=== PATIENT | female | born 2000 | race Caucasian/White ===

== ENCOUNTER 2019-10-21 17:12 | Emergency (ER) | payer OTHER, BC, SELFPAY ==
[2019-10-21 17:14] VITALS: BP 139/101; PULSE 94; RESP 16; TEMP 36.6; O2SAT 100; BMI 23.1
[2019-10-21] MEDS: morphine 8 MG/ML Syringe IV (17:59)
[2019-10-21] MEDS: Ondansetron ODT 4 MG Tablet PO (18:01)
--- NOTE | 2019-10-21 18:34 | ED.DCSUM_ITS ---
- ER Visit Summary Date of Service: 10/21/19 Chief Complaint: Earache History of Present Illness: The patient is a 18 F with no primary care physician. She went to urgent care 2 days ago and had her ear flushed. She was placed on Cortisporin otic and Augmentin. She reports that she is not getting any better. She describes a sharp, stabbing pain in her ear that is 10 out of 10 at worst and 7-10 currently. Is worsened by talking or eating solids. She taken ibuprofen with minimal relief. She complains of subjective fever and chills. She has a little bit of sore throat. Physical Examination: Vitals: Stable. Afebrile. General: Well-nourished and well-developed. Head: Normocephalic atraumatic. HEENT: Right external auditory canal and TM are normal. She has pain with movement of the left tragus or pinna. There is exudate present in the canal and it is swollen. I am unable to visualize her TM. No evidence of mastoiditis. Neck: Supple, no lymphadenopathy. No JVD. Nontender. Cardiovascular: Regular rate and rhythm. No murmurs. Respiratory: No respiratory distress. Clear to auscultation bilaterally. Abdominal: Soft, nontender, nondistended, normal bowel sounds. No guarding, rebound, or peritoneal signs. Back: Nontender. Extremities: Nontender, no edema. Skin: Normal color, no rash. Neurologic: Alert and oriented ?3. Cranial nerves II through XII are intact. Normal strength and sensation. Psych: Normal affect. Emergency Department Course and Treatment: Patient was given a shot of morphine IM. She then had a wick placed in her ear. Treatment Plan: Patient will be switched from hydrocortisone otic to Ciprodex. She is given [place] for pain and instructed continue take the Augmentin as I cannot visualize her TM. Follow-up with Dr. Leija in 1 week for another exam. Return to the emergency department for any worsening symptoms. Disposition: To home in improved and stable condition. Impression: 1. Otitis externa on left. This note was generated with [employer] software. It may contain incorrect words, spelling, and punctuation that were not noted in review of the chart prior to signing ED Disposition - Plan for ED Patient: Disposition: Home or Assisted Living Instructions: EXTERNAL EAR INFECTION (Adult) Prescriptions: Ciprofloxacin HCl/Dexameth [Ciprodex Otic Suspension] 4 drp OTIC (EAR) BID #1 bottle Prescription Printed Hydrocodone Bitart/Apap 5-325 [[place] 5MG-325MG] 1 tab PO Q4H PRN PRN 2 Days #10 tab PRN Reason: Pain Prescription Printed Referrals: Geraldo Leija MD [STAFF PHYSICIAN] - 1 Week
== END 2019-10-21 18:49 | disposition home or self-care (01) ==
LOC: ED 18:13
PROVIDERS: Emergency Provider Emergency Medicine; PCP Pediatrics
DX: H60.92 Unspecified otitis externa, left ear (principal); Z72.0 Tobacco use
CPT/HCPCS: 96374; 99283; A4216; J2405

== ENCOUNTER 2021-04-24 11:07 | Emergency (ER) | payer BC, SELFPAY ==
[2021-04-24 11:07] VITALS: BP 125/75; PULSE 79; RESP 16; TEMP 36.6; O2SAT 98; BMI 23.3
--- NOTE | 2021-04-24 11:40 | EDS_ITS ---
HPI History of Present Illness Chief Complaint: Dizziness Informant: patient Narrative Narrative: Presenting with vertigo symptoms starting yesterday evening. Today worsen with room spinning. States symptoms worse with fast movements. No ear pain no sinus congestion. No history of similar. 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 No fevers. No vomiting. No urinary symptoms. Prior similar symptoms: No PFSH PFSH Home Medications metoclopramide HCl [Reglan] 10 mg PO Q6H PRN #10 tab 04/24/21 [Rx Last Taken Unknown] Allergy/AdvReac Type Severity Reaction Status Date / Time tussin AdvReac Rash Uncoded 03/24/21 12:07 Social History Smoking Status: Current every day smoker tobacco type: cigarettes ROS ROS ED Constitutional Constitutional ED: Denies chills, fever(s) or sweats Eyes Eyes: Denies change in vision ENT ENT ED: Denies dysphagia or sore throat Cardiovascular Cardiovascular: Denies chest pain, leg edema, palpitations or racing heartbeat Respiratory/Chest Respiratory/Chest: Denies cough, dyspnea or dyspnea on exertion Gastrointestinal Gastrointestinal: Denies abdominal pain, diarrhea, nausea or vomiting Genitourinary Genitourinary ED: Denies dysuria, hematuria or urinary frequency Musculoskeletal Musculoskeletal: Denies back pain, extremity pain or neck pain Integumentary Denies rash or wounds Neurologic Neurologic: Reports other Details: Dizzy spinning. ; Denies headache(s), paresthesias or weakness EXAM Physical Exam Const Vital Signs: 04/24/21 11:07 04/24/21 11:53 04/24/21 13:30 Temperature 98 F Temperature Source Temporal Pulse Rate 79 77 Respiratory Rate 16 16 Respiratory Effort Normal Non-Labored Respiratory Pattern Normal Blood Pressure 125/75 H Blood Pressure Mean 91 Pulse Ox 98 96 Oxygen Delivery Method Room Air Room Air Positive well nourished and well developed General Appearance ED: well developed and NAD HEENT Reports TM's clear and moist mucous membranes normocephalic and atraumatic Tympanic Membrane ED: Yes TM's clear Eyes PERRL, EOMs intact bilaterally and conjunctivae normal Eyes Narrative: No nystagmus. Symptoms worsening with extreme eye movement to the right. General Eye ED: Yes normal appearance of both eyes Neck no lymphadenopathy and supple General: Negative for tenderness Chest Wall Chest: Negative for tenderness Resp normal respiratory effort and normal air movement Effort and Inspection: symmetric chest movement; Negative for respiratory distress Cardio regular rate, regular rhythm and no murmurs Peripheral Pulses: pulses 2+ throughout GI normal to inspection, nondistended, normoactive bowel sounds and non-tender Palpation: Negative for guarding or rebound tenderness present Back/Spine no CVA tenderness and no thoracic nor lumbar tenderness Extremity normal to inspection General Extremety ED: Negative for edema or tenderness General Extremity: Negative for edema Neuro oriented x3 and no sensory deficits noted Sensorium / Orientation: awake and alert Skin no rashes or lesions noted and no wounds MDM MDM MDM Narrative Medical decision making narrative: Patient presenting with vertigo symptoms for the past 2 days. Symptoms worse with movement. She had no focal deficits. Tried meclizine in the ED along with Benson maneuver, she states symptoms did not improve. IV was established given fluids IV Reglan laboratory studies normal. CT head was negative. On reevaluation's her symptoms improved, she is able to move her head with no return of symptoms. She will be discharged prescription for Reglan to use as needed and follow-up with her PCP. Discussed the recurrent symptoms will need further work-up as an outpatient. All questions were answered. Lab Data Attestation: I reviewed the patient's lab results. Labs: Laboratory Results - last 24 hr 04/24/21 04/24/21 04/24/21 13:30 13:30 13:30 WBC 7.6 RBC 4.95 Hgb 14.1 Hct 42.1 MCV 85.1 MCH 28.5 MCHC 33.5 RDW Std Deviation 35.5 RDW Coeff of [place] 11.7 Plt Count 338 MPV 9.1 Immature Gran % (Auto) 0.300 Neut % (Auto) 53.3 Lymph % (Auto) 22.5 Towns % (Auto) 5.4 Eos % (Auto) 18.1 H Baso % (Auto) 0.4 Absolute Neuts (auto) 4.0 Absolute Lymphs (auto) 1.70 Nucleated RBC % 0 Sodium 139 Potassium 4.0 Chloride 107 Carbon Dioxide 28.0 Anion Gap 4 L BUN 7 Creatinine 0.76 Estim Creat Clear Calc 104.48 Est GFR (MDRD) Af Amer 122 Est GFR (MDRD) Non-Af 101 BUN/Creatinine Ratio 9.2 L Glucose 87 Calcium 9.7 Serum , Qual NEGATIVE Radiography Diagnostic Testing: Radiology Impression Brain CT 04/24/21 13:16 IMPRESSION: Negative head/brain CT without intravenous contrast. Electronically Signed: Rafa Ivory MD at 14:39 EDT , Service support , Discharge Plan Triage Chief Complaint: Dizziness ED Provider: Charlie Johnson Dx/Rx/DC Orders Clinical Impression: Vertigo Instructions: Dizziness Vertigo and Balance ... Prescriptions: New metoclopramide HCl [Reglan] 10 mg tablet 10 mg PO Q6H PRN (Reason: dizziness or vertigo) Qty: 10 RF: 0 Primary Care Provider: Care Physician,No Primary Referrals: Care Physician,No Primary [Primary Care Provider] - Reno Rose MD [STAFF PHYSICIAN] - 1 Week Disposition Disposition: Home, Self Care
[2021-04-24] MEDS: Meclizine HCl 25 MG Tablet PO (11:52)
--- NOTE | 2021-04-24 13:16 | CT_ITS ---
EXAM: CT HEAD WITHOUT INTRAVENOUS CONTRAST CLINICAL INDICATION: vertigo TECHNIQUE: Multiple axial images were obtained of the head without intravenous contrast. This CT exam was performed using one or more of the following dose reduction techniques: automated exposure control, adjustment of the mA and/or kV according to patient size, and/or use of iterative reconstruction technique. This report was created using [employer] report generation technology. COMPARISON: None. FINDINGS: BRAIN AND EXTRA-AXIAL SPACES: Unremarkable. No intra- or extra-axial hemorrhage. No evidence of acute infarct. No intracranial mass or mass effect. There is preservation of the spann/white matter interface. Posterior fossa structures are unremarkable. Ventricles are appropriate for age. No hydrocephalus. Basal cisterns are patent. BONES/JOINTS: Unremarkable. No discrete lytic or blastic abnormalities. SINUSES: Unremarkable as visualized. Clear. MASTOID AIR CELLS: Unremarkable. Clear. ORBITS: Visualized globes, extraocular muscles, optic nerves and retrobulbar fat appear unremarkable. CT/Brain/Head without Contrast IMPRESSION: Negative head/brain CT without intravenous contrast. Electronically Signed: Rafa Ivory MD at 14:39 EDT , Service support ,
[2021-04-24 13:30] VITALS: PULSE 77; RESP 16; O2SAT 96
[2021-04-24] MEDS: Metoclopramide 10 MG/2 ML Vial 5 MG IV (13:31)
[2021-04-24 13:41] LABS: Basophil# 0.03 X10^3/uL; Basophil% 0.4 % (0-1); Eosinophil# 1.37 X10^3/uL; Eosinophils% 18.1 % (0-5); Hematocrit 42.1 % (37-47); Hemoglobin 14.1 g/dL (12.0-15.0); Lymphocyte % 22.5 % (19-41); Mean Corp Hgb Conc 33.5 g/dL (32-36); Mean Corpuscular Hgb 28.5 pg (27.0-32.0); Mean Corpuscular Volume 85.1 fL (81-99); Mean Platelet Vol. 9.1 fl (6.2-12.0); Monocyte# 0.41 X10^3/uL; Monocyte% 5.4 % (0-10); NRBC Flagged by Analyzer 0 % (0-5); Neutrophil # 4.04 X10^3/uL (2.7-7.7); Neutrophil % 53.3 % (47-70); Platelet Count 338 K/mm3 (150-450); RBC Distribution Width CV 11.7 % (11.6-14.6); RBC Distribution Width SD 35.5 fl (35.1-43.9); Red Blood Count 4.95 M/mm3 (4.2-5.4); White Blood Count 7.6 K/mm3 (4.4-11.0)
[2021-04-24 13:50] LABS: Internal QC Validated? YES +Cl - CLEAR BKGD; Pregnancy, Serum, hCG Quali. NEGATIVE Negative
[2021-04-24 13:55] LABS: Anion Gap 4 (5-15); BUN 7 mg/dL (7-18); BUN/Creat Ratio 9.2 RATIO (10-20); Calcium,Total 9.7 mg/dL (8.5-10.1); Chloride 107 mmol/L (98-107); Creatinine, Serum 0.76 mg/dL (0.55-1.02); EST Glomerular Filtration Rate 101 mL/min (>60); Est Glom Filt Rate - Afr Amer 122 mL/min (>60); Estimated Creatinine Clearance 104.48 ml/min; Glucose 87 mg/dL (74-106); Sodium Level 139 mmol/L (136-145)
[2021-04-24 16:29] VITALS: PULSE 86; RESP 16; O2SAT 97
== END 2021-04-24 16:30 | disposition home or self-care (01) ==
PROVIDERS: Emergency Provider Emergency Medicine
DX: R42 Dizziness and giddiness (principal); F17.210 Nicotine dependence, cigarettes, uncomplicated
CPT/HCPCS: 70450; 80048; 84703; 85025; 96361; 96374; 99283; J7040

== ENCOUNTER 2021-06-05 12:20 | Emergency (ER) | payer BC, SELFPAY ==
[2021-06-05 12:22] VITALS: BP 113/91; PULSE 105; RESP 18; TEMP 37.1; O2SAT 99; BMI 22.4
--- NOTE | 2021-06-05 12:47 | EDS_ITS ---
HPI History of Present Illness Chief Complaint: Headache Informant: patient Narrative Narrative: Patient's been having problems with headaches for about 3 or 4 months. These are almost always unilateral right-sided headaches that start in the front and then moved toward the back of her head and the top of her neck. She does get some photophobia and sonophobia with them. She has had nausea but has not vomited. Nothing specifically brings these on consistently but sometimes loud noises well. She has had no recent head trauma. She was seen here earlier in April. She had a CT. She has an appointment with her physician for follow-up this Saturday. She is also noted that she sometimes gets tingling of her fingers and toes. This will move up her arms to somewhere between elbows and shoulders or knees and hips. This will occur bilaterally.. Prior similar symptoms: Yes PFSH PFSH Medical History (Updated 06/05/21 @ 14:[address] Nicko Long MD) Migraines Medical History no medical history no medical history Home Medications metoclopramide HCl [Reglan] 10 mg PO Q6H PRN #10 tab 04/24/21 [Rx Last Taken Unknown] Allergy/AdvReac Type Severity Reaction Status Date / Time tussin AdvReac Rash Uncoded 06/05/21 12:25 Social History Smoking Status: Current every day smoker tobacco type: e-cigarettes ROS ROS ED Constitutional Constitutional ED: Denies chills, fever(s) or subjective Eyes Eyes: Reports other Details: Positive photophobia when she has a headache. ; Denies blurry vision, change in vision or diplopia ENT ENT ED: Denies ear pain, rhinorrhea or sore throat Cardiovascular Cardiovascular: Denies chest pain or palpitations Respiratory/Chest Respiratory/Chest: Denies cough or dyspnea Gastrointestinal Gastrointestinal: Reports nausea; Denies abdominal pain, diarrhea or vomiting Genitourinary Genitourinary ED: Denies dysuria Musculoskeletal Musculoskeletal: Denies arthralgias, back pain, myalgias or neck pain Integumentary Denies Abrasions or rash Neurologic Neurologic: Reports headache(s) and paresthesias; Denies weakness Psychiatric Psychiatric: Denies anxiety or depression Endocrine Endocrinology: Denies polydipsia or polyuria Hematologic/Lymphatic Hematologic/Lymphatic: Denies easy bleeding or easy bruising Allergic/Immunologic Allergic/Immunologic ED: Denies urticaria EXAM Physical Exam Const Vital Signs: 06/05/21 12:22 Temperature 98.8 F Temperature Source Temporal Pulse Rate 105 H Respiratory Rate 18 Blood Pressure 113/91 H Blood Pressure Mean 98 Pulse Ox 99 Oxygen Delivery Method Room Air Patient is sitting in a well lit room. She does feel better when I turn off the lights. She is nontoxic. She carries on a very normal conversation. Positive well nourished and well developed General Appearance ED: well developed and NAD HEENT Reports normocephalic, TM's clear and moist mucous membranes atraumatic; Negative for temporal artery tenderness or vesicular rash Face and Sinus: Negative for sinus tenderness Tympanic Membrane ED: Yes TM's clear Eyes PERRL and EOMs intact bilaterally Neck no lymphadenopathy, supple and no meningeal signs Resp normal respiratory effort and clear to auscultation bilaterally Cardio regular rate and regular rhythm GI non-tender and non-distended Palpation: soft Back/Spine no CVA tenderness Neuro oriented x3 and no sensory deficits noted Neuro Narrative: Patient has normal strength and sensation. She gets up off the chair rotates sits down on the bed without any difficulty or discoordination. Sensorium / Orientation: awake and alert Motor Exam: strength 5/5 throughout Psych mental status grossly normal Skin Lesions: no lesions Rashes: no rashes MDM MDM MDM Narrative Medical decision making narrative: Patient's blood work showed no marked abn ormalities. Sodium was minimally low. Glucose potassium chloride calcium are all normal. I reviewed her CT scan that was done last month. I do not think that needs to be repeated. Her symptoms are essentially the same and there is no neurologic finding on exam. She is treated with Benadryl, Compazine IV fluids. She is resting and feels much better. I explained that she should cautiously watch out for any auras. She states she does not think she has them before her headache starts but no one has talked to her about that before. If she can sort out an aura, she can take Imitrex at the onset that will hopefully abort her headaches. She will follow up with her private physician. We also discussed seeing neurology and consideration of MRI as a possibility as an outpatient. We also discussed multiple sclerosis although I do not think this is likely in her case. Lab Data Attestation: I reviewed the patient's lab results. Labs: Laboratory Results - last 24 hr 06/05/21 13:10 Sodium 134 L Potassium 4.3 Chloride 105 Carbon Dioxide 21.0 Anion Gap 8 BUN 17 Creatinine 0.95 Estim Creat Clear Calc 83.58 Est GFR (MDRD) Af Amer 95 Est GFR (MDRD) Non-Af 78 BUN/Creatinine Ratio 18.0 Glucose 99 Calcium 9.4 Discharge Plan Triage Chief Complaint: Headache ED Provider: Nicko Long Dx/Rx/DC Orders Clinical Impression: Migraine Instructions: ED, Migraine (Classical) Prescriptions: No Action metoclopramide HCl [Reglan] 10 mg tablet 10 mg PO Q6H PRN (Reason: dizziness or vertigo) Qty: 10 RF: 0 Primary Care Provider: Care Physician,No Primary Referrals: Care Physician,No Primary [Primary Care Provider] - Activity Restrictions/Additional Instructions: Follow-up again with your primary physician as soon as possible. Disposition Disposition: Home, Self Care
[2021-06-05] MEDS: proCHLORPERazine 10 MG/2 ML Vial IV (13:08)
[2021-06-05] MEDS: DiphenhydrAMINE 50 MG/ML Syringe IV (13:08)
[2021-06-05] MEDS: 0.9% Normal Saline 1,000 ML 999 ML IV (13:08)
[2021-06-05 13:41] LABS: Anion Gap 8 (5-15); BUN 17 mg/dL (7-18); Calcium,Total 9.4 mg/dL (8.5-10.1); Chloride 105 mmol/L (98-107); Creatinine, Serum 0.95 mg/dL (0.55-1.02); EST Glomerular Filtration Rate 78 mL/min (>60); Est Glom Filt Rate - Afr Amer 95 mL/min (>60); Estimated Creatinine Clearance 83.58 ml/min; Glucose 99 mg/dL (74-106); Potassium 4.3 mmol/L (3.5-5.1); Sodium Level 134 mmol/L (136-145)
[2021-06-05 14:34] VITALS: BP 112/76; PULSE 76; RESP 16; O2SAT 97
== END 2021-06-05 14:36 | disposition home or self-care (01) ==
PROVIDERS: Emergency Provider Emergency Medicine
DX: G43.909 Migraine, unspecified, not intractable, without status migrainosus (principal); F17.290 Nicotine dependence, other tobacco product, uncomplicated
CPT/HCPCS: 80048; 96361; 96374; 96375; 99284; J7030; A4216

== ENCOUNTER 2022-04-10 10:51 | Emergency (ER) | payer OTHER, SELFPAY ==
[2022-04-10 10:52] VITALS: BP 140/97; PULSE 108; RESP 18; TEMP 37.1; O2SAT 100; BMI 19.8
--- NOTE | 2022-04-10 11:15 | EDS_ITS ---
HPI History of Present Illness Chief Complaint: Nausea/Vomiting Informant: patient Onset/Context/Timing Onset: Days (3 days) Context: Gradual Onset Current Severity: Mild Maximum Severity: Moderate Narrative Narrative: Patient presents with 3 days of nausea and vomiting. She describes some abdominal cramping and nauseous feeling. She called her PCP this morning who felt she needed to be come in for IV fluids. She denies urinary symptoms. No diarrhea. No fever or chills. Last menstrual cycle started on March 23. [facility] Medical History Migraines Home Medications ondansetron 4 mg disintegrating tablet 4 mg PO Q8H PRN nausea and vomiting #10 tabs 04/10/22 [Rx Last Taken Unknown] Allergy/AdvReac Type Severity Reaction Status Date / Time No Known Allergies Allergy Verified 04/10/22 10:54 Social History Smoking Status: Current every day smoker tobacco type: e-cigarettes ROS ROS ED Constitutional Constitutional ED: Denies chills or fever(s) Eyes Eyes: Denies change in vision or discharge from eye(s) ENT ENT ED: Denies discharge from eye(s), rhinorrhea or sore throat Cardiovascular Cardiovascular: Denies chest pain or palpitations Respiratory/Chest Respiratory/Chest: Denies cough or dyspnea Gastrointestinal Gastrointestinal: Reports nausea and vomiting; Denies abdominal pain or diarrhea Genitourinary Genitourinary ED: Denies difficulty urinating or dysuria Musculoskeletal Musculoskeletal: Denies back pain or extremity pain Integumentary Denies Abrasions or rash Neurologic Neurologic: Denies headache(s) or weakness Psychiatric Psychiatric: Denies anxiety or depression Allergic/Immunologic Allergic/Immunologic ED: Denies lip swelling or urticaria EXAM Physical Exam Const Vital Signs: 04/10/22 10:52 Temperature 98.7 F Temperature Source Temporal Pulse Rate 108 H Respiratory Rate 18 Blood Pressure 140/97 H Blood Pressure Mean 111 Pulse Ox 100 Oxygen Delivery Method Room Air Positive well nourished and well developed General Appearance ED: well developed HEENT Reports normocephalic and head/scalp atraumatic Eyes PERRL and EOMs intact bilaterally Neck supple Chest Wall inspection of chest normal and palpation of chest normal Resp normal respiratory effort and clear to auscultation bilaterally Cardio regular rate and regular rhythm GI non-tender Auscultation: hypoactive bowel sounds Palpation: soft Extremity normal to inspection Neuro oriented x3 and no sensory deficits noted Sensorium / Orientation: alert Motor Exam: strength 5/5 throughout Psych mental status grossly normal Skin no rashes or lesions noted MDM MDM MDM Narrative Medical decision making narrative: Patient given a liter IV fluid along with a dose of Zofran. Lab work obtained along with urinalysis. Lab Data Attestation: I reviewed the patient's lab results. Labs: Laboratory Results - last 24 hr 04/10/22 04/10/22 04/10/22 11:31 11:31 11:31 WBC 5.0 RBC 4.62 Hgb 13.3 Hct 39.7 MCV 85.9 MCH 28.8 MCHC 33.5 RDW Std Deviation 37.8 RDW Coeff of [place] 12.1 Plt Count 273 MPV 9.4 Immature Gran % (Auto) 0.400 Neut % (Auto) 67.1 Lymph % (Auto) 24.9 [place] % (Auto) 5.8 Eos % (Auto) 1.6 Baso % (Auto) 0.2 Absolute Neuts (auto) 3.4 Absolute Lymphs (auto) 1.25 Nucleated RBC % 0 Sodium 139 Potassium 4.1 Chloride 107 Carbon Dioxide 26.0 Anion Gap 6 BUN 10 Creatinine 0.83 Estim Creat Clear Calc 89.86 Est GFR (MDRD) Af Amer 109 Est GFR (MDRD) Non-Af 90 BUN/Creatinine Ratio 12.0 Glucose 90 Calcium 9.4 Serum , Qual NEGATIVE Urine Color Urine Clarity Urine pH Ur Specific [place] Urine Protein Urine Glucose (UA) Urine Ketones Urine Occult Blood Urine Nitrite Urine Bilirubin Urine Urobilinogen Ur Leukocyte Esterase Urine RBC Urine WBC Ur Squamous Epith Cells Urine Bacteria Urine Mucus 04/10/22 11:35 WBC RBC Hgb Hct MCV MCH MCHC RDW Std Deviation RDW Coeff of [place] Plt Count MPV Immature Gran % (Auto) Neut % (Auto) Lymph % (Auto) [place] % (Auto) Eos % (Auto) Baso % (Auto) Absolute Neuts (auto) Absolute Lymphs (auto) Nucleated RBC % Sodium Potassium Chloride Carbon Dioxide Anion Gap BUN Creatinine Estim Creat Clear Calc Est GFR (MDRD) Af Amer Est GFR (MDRD) Non-Af BUN/Creatinine Ratio Glucose Calcium Serum , Qual Urine Color Yellow Urine Clarity Sl. Cloudy Urine pH 7.0 Ur Specific [place] 1.010 Urine Protein Negative Urine Glucose (UA) Normal Urine Ketones Negative Urine Occult Blood Negative Urine Nitrite Negative Urine Bilirubin Negative Urine Urobilinogen Normal Ur Leukocyte Esterase Negative Urine RBC 0 SEEN Urine WBC 0 SEEN Ur Squamous Epith Cells 0-5 SEEN Urine Bacteria 0 SEEN Urine Mucus 0 SEEN Treatment and Re-Evaluation Narrative: Lab work and urinalysis unremarkable. test is negative. On repeat evaluation patient resting comfortably. Test results discussed with her. She will be given a prescription for Zofran to have at home if needed. Discharge Plan Triage Chief Complaint: Nausea/Vomiting ED Provider: Macy Parsons Dx/Rx/DC Orders Clinical Impression: Vomiting Instructions: ED Vomiting (Adult) Prescriptions: New ondansetron 4 mg tablet,disintegrating 4 mg PO Q8H PRN (Reason: nausea and vomiting) Qty: 10 0RF Primary Care Provider: VELIA PICKARD Referrals: NOT,DEFINED [Non-Staff] - Agatha Mata CERTIFIED SHORTHAND REPORTER, CERTIFIED SHORTHAND REPORTER-C [Non-Staff] - 3-5 Days if not improving Disposition Disposition: Home, Self Care
[2022-04-10 11:39] LABS: Absolute Lymphocyte Count 1.25 X10^3/uL (0.83-4.51); Absolute Neutrophil Count 3.4 X10^3/uL (2.0-7.7); Basophil# 0.01 X10^3/uL; Basophil% 0.2 % (0-1); Eosinophil# 0.08 X10^3/uL; Eosinophils% 1.6 % (0-5); Hematocrit 39.7 % (37-47); Hemoglobin 13.3 g/dL (12.0-15.0); Lymphocyte # 1.25 X10^3/ul (0.83-4.51); Lymphocyte % 24.9 % (19-41); Mean Corp Hgb Conc 33.5 g/dL (32-36); Mean Corpuscular Hgb 28.8 pg (27.0-32.0); Mean Corpuscular Volume 85.9 fL (81-99); Mean Platelet Vol. 9.4 fl (6.2-12.0); Monocyte# 0.29 X10^3/uL; Monocyte% 5.8 % (0-10); NRBC Flagged by Analyzer 0 % (0-5); Neutrophil # 3.37 X10^3/uL (2.7-7.7); Neutrophil % 67.1 % (47-70); Platelet Count 273 K/mm3 (150-450); RBC Distribution Width CV 12.1 % (11.6-14.6); RBC Distribution Width SD 37.8 fl (35.1-43.9); Red Blood Count 4.62 M/mm3 (4.2-5.4)
[2022-04-10] MEDS: 0.9% Normal Saline 1,000 ML 1000 ML IV (11:39)
[2022-04-10] MEDS: Ondansetron 4 MG/2 ML Vial IV (11:40)
[2022-04-10 11:41] LABS: Bacteria 0 SEEN /hpf (None Seen); Mucous, Urine 0 SEEN /hpf (<or=2+); Red Blood Cells-Urine 0 SEEN /hpf (0-5); White Blood Cells 0 SEEN /hpf (0-5)
[2022-04-10 11:45] LABS: Color, Urine Yellow (Yellow); Glucose, Dipstick Normal (Normal); Ketone-Dipstick Negative (Negative); Leukocyte Esterase-Dipstick Negative /ul (Negative); Nitrite-Dipstick Negative (Negative); Occult Blood-Urine Negative /ul (Negative); Protein-Dipstick Negative (Negative); Urine Bilirubin Dipstick Negative (Negative); Urine Clarity Sl. Cloudy (Clear); Urine Urobilinogen Normal (Normal)
[2022-04-10 11:50] LABS: Squamous Epithelial Cells - UA 0-5 SEEN /hpf (5-10)
[2022-04-10 11:51] LABS: Anion Gap 6 (5-15); BUN 10 mg/dL (7-18); Calcium,Total 9.4 mg/dL (8.5-10.1); Chloride 107 mmol/L (98-107); Creatinine, Serum 0.83 mg/dL (0.55-1.02); EST Glomerular Filtration Rate 90 mL/min (>60); Est Glom Filt Rate - Afr Amer 109 mL/min (>60); Estimated Creatinine Clearance 89.86 ml/min; Glucose 90 mg/dL (74-106); Potassium 4.1 mmol/L (3.5-5.1); Sodium Level 139 mmol/L (136-145)
[2022-04-10 12:25] LABS: Internal QC Validated? YES +Cl - CLEAR BKGD; Pregnancy, Serum, hCG Quali. NEGATIVE Negative
[2022-04-10 12:37] VITALS: BP 109/84; PULSE 72; RESP 15; O2SAT 99
== END 2022-04-10 12:38 | disposition home or self-care (01) ==
PROVIDERS: Emergency Provider Emergency Medicine; PCP Nurse Practitioner Primary Care; Visit Provider Emergency Medicine
DX: R11.2 Nausea with vomiting, unspecified (principal); F17.290 Nicotine dependence, other tobacco product, uncomplicated
CPT/HCPCS: 80048; 81001; 84703; 85025; 96361; 96374; 99283; J7030; J2405

== ENCOUNTER 2022-10-21 15:42 | Emergency (ER) | payer OTHER, MEDICAID, SELFPAY ==
[2022-10-21 15:43] VITALS: BP 125/82; PULSE 74; RESP 14; TEMP 36.2; O2SAT 100; BMI 21.8
--- NOTE | 2022-10-21 16:00 | US_ITS ---
STUDY: FIRST TRIMESTER OBSTETRICAL ULTRASOUND REASON FOR EXAM: Female, 21 years old pain. 1st trimester LMP: TECHNIQUE: Transvaginal TECHNICAL QUALITY: Adequate. PRIOR ULTRASOUND: None. FINDINGS: There is visualization of a single gestational sac in a normal intrauterine position. The mean sac diameter (MSD) measures 2.1 mm, indicating an estimated gestational age (EGA) of 7 weeks, 0 days. The gestational sac shape is within normal limits. There is a visualized yolk sac. The yolk sac measures 3 mm. The placenta is non-visualized. There is visualization of a live embryo. The crown-rump length (CRL) measures 9 mm, indicating an estimated gestational age (EGA) of 7 weeks, 0 days. There is demonstrated cardiac activity with a heart rate of 127 bpm. The estimated gestation age (EGA) by LMP is 6 weeks, 6 days. The estimated date of delivery (FABI) by LMP is June 10, 2023. The estimated gestation age (EGA) by US is 7 weeks, 0 days. The estimated date of delivery (FABI) by US is June 09, 2023. The uterus measures 11.1 x 7.6 x 6.6 cm. There is no demonstrated uterine fibroid. The cervix is closed. The right ovary measures 4.3 x 2.5 x 1.7 cm. There is no right ovarian cyst. There is no visualized right adnexal mass or complex lesion. The left ovary measures 3.5 x 2.9 x 2.2 cm. There is no left ovarian cyst. There is no visualized left adnexal mass or complex lesion. There is no fluid in the cul de sac. US/Transvaginal w/Preg US IMPRESSION: Viable intrauterine gestation approximately 7 weeks gestational age. No significant abnormality Electronically Signed: Kyler Moran MD at 17:55 EST ,
--- NOTE | 2022-10-21 16:02 | EDS_ITS ---
HPI HPI - Female History of Present Illness Chief Complaint: Detail of Chief Complaint: Pelvic pain. First trimester . No care. No bleeding. Informant: patient Pain Pain: Positive for Pelvic Pain Onset: Days Context: Gradual Onset Timing: Intermittent Quality: Positive for Cramping Current Severity: Mild Maximum Severity: Mild Bleeding Issue: Negative for Vaginal bleeding, Passing clots or Passing tissue Associated Symptoms Associated Symptoms: Negative for Dysuria, Frequency, Urgency or Hematuria Test: Positive Sexually: Positive for Active Control: No control P: 1 Ab: 0 Narrative Narrative: 21-year-old female Ab0. Approximately 7 weeks . No care. Denies any vaginal bleeding or discharge. No dysuria. States she is having pelvic pain in the last 24 hours. Blood type so positive. Her last was almost 8 years ago. She has had no FIELD EDUCATION DIRECTOR or abdominal surgeries. States she had some nausea and vomiting. No dysuria. No fever. Prior similar symptoms: No Recent Illness/Hospitalization: No PFSH PFSH Medical History Migraines Home Medications ondansetron 4 mg disintegrating tablet 4 mg PO Q8H PRN nausea and vomiting #10 tabs 04/10/22 [Rx Last Taken Unknown] Allergy/AdvReac Type Severity Reaction Status Date / Time No Known Allergies Allergy Verified 10/21/22 15:43 Surgical History no surgical history no surgical history Social History Smoking Status: Current every day smoker tobacco type: cigarettes and e- cigarettes ROS ROS ED ROS Narrative Nausea and vomiting. Pelvic pain. Review of Systems ROS Unobtainable: Denies due to encephalopathy Constitutional Constitutional ED: Denies chills or fever(s) Eyes Eyes: Denies blurry vision ENT ENT ED: Denies ear pain Cardiovascular Cardiovascular: Denies chest pain Respiratory/Chest Respiratory/Chest: Denies cough Gastrointestinal Gastrointestinal: Denies abdominal pain Genitourinary Genitourinary ED: Denies dysuria Musculoskeletal Musculoskeletal: Denies arthralgias Integumentary Denies abscess Neurologic Neurologic: Denies headache(s) Psychiatric Psychiatric: Denies anxiety Endocrine Endocrinology: Denies heat intolerance Hematologic/Lymphatic Hematologic/Lymphatic: Denies easy bleeding or easy bruising Allergic/Immunologic Allergic/Immunologic ED: Denies mouth swelling EXAM Physical Exam Narrative Exam Narrative: Well-appearing 21-year-old female. Vital signs are stable afebrile. H EENT exam unremarkable. Lungs clear. Heart regular rhythm rate about 75 no murmur. Chest wall nontender. Abdomen soft nondistended normal bowel sounds no peritoneal signs. Very mild suprapubic tenderness. Moving all 4 extremities. Back nontender. Neurologically she is awake and alert no focal motor deficits Const Vital Signs: 10/21/22 15:43 10/21/22 17:46 Temperature 97.2 F L Temperature Source Temporal Pulse Rate 74 Respiratory Rate 14 16 Blood Pressure 125/82 H Blood Pressure Mean 96 Pulse Ox 100 Oxygen Delivery Method Room Air Room Air Positive well nourished and well developed; Negative for obese, cachectic, contractures or unkempt General Appearance ED: well developed and NAD; Negative for unkempt, cachectic, contractures or pallor Nutritional Appearance: Negative for cachectic or obese HEENT Reports moist mucous membranes Negative for trauma or tenderness Eyes PERRL and EOMs intact bilaterally General Eye ED: Negative for pale conjunctiva or scleral icterus Neck no lymphadenopathy, supple and no JVD General: Negative for other Thyroid: Negative for tender Lymph Lymphatic: Negative for other Chest Wall inspection of chest normal and palpation of chest normal Chest: Negative for other Resp normal respiratory effort and clear to auscultation bilaterally Effort and Inspection: Negative for pain with movement Auscultation: Negative for rales, rhonchi or wheezes Cardio regular rate, regular rhythm, S1 normal heart sound, no murmurs and no JVD Rate: Negative for bradycardia or tachycardic GI normal to inspection, nondistended, normoactive bowel sounds, soft to palpation, non-tender, non-distended and no masses Auscultation: normoactive bowel sounds Palpation: Negative for tender or guarding Back/Spine no CVA tenderness General Back: Negative for CVA tenderness Cervical Spine: Negative for cervical spine tenderness Thoracic Spine / Upper Back: Negative for thoracic spinal tenderness Lumbar Spine / Lower Back: Negative for lumbar spinal tenderness Sacrum: Negative for other Extremity normal to inspection and full ROM General Extremety ED: Negative for edema or tenderness General Extremity: Negative for edema Neuro oriented x3 and CN's II-XII intact bilaterally Sensorium / Orientation: oriented to person, oriented to place and oriented to time; Negative for alert, confused, lethargic, stuporous or other Motor Exam: strength 5/5 throughout Psych mental status grossly normal Appearance: Negative for unkempt Attitude: No agitated Speech: No other Mood & Affect: Negative for depressed, anxious or tearful Skin no rashes or lesions noted and no wounds General Skin Exam: Negative for jaundice or pallor Rashes: No rashes noted Trauma: Negative for other MDM MDM MDM Narrative Medical decision making narrative: 21-year-old with pelvic pain reportedly 7 weeks . No care. Pending follow-up with Dr. Cash from the [facility] in several weeks. Pelvic exam, ultrasound and labs pending. I reviewed her old records and your blood type previously was O+. Repeat exam doing well at 6:30 PM. Will be discharged home with follow-up with her DESIGN PROJECT MANAGER Dr. Cash. Lab Data Attestation: I reviewed the patient's lab results. Lab results narrative: Urinalysis negative. No signs of infection. Quantitative hCG 73,466. Ultrasound shows a single live IUP at 7 weeks with a due date of May 2023. Heart rate of 127. Labs: Laboratory Results - last 24 hr 10/21/22 10/21/22 16:06 16:15 HCG, Quant [id number] H Urine Color Yellow Urine Clarity Clear Urine pH 8.0 Ur Specific [place] 1.015 Urine Protein Negative Urine Glucose (UA) Normal Urine Ketones 15 H Urine Occult Blood Negative Urine Nitrite Negative Urine Bilirubin Negative Urine Urobilinogen Normal Ur Leukocyte Esterase Negative Urine RBC 0 SEEN Urine WBC 0 SEEN Ur Squamous Epith Cells 0-5 SEEN Urine Bacteria 0 SEEN Urine Mucus 0 SEEN Radiography Diagnostic Testing: Clinical Impression(s) from Imaging Studies Obstetrics Ultrasound 10/21/22 16:00 IMPRESSION: Viable intrauterine gestation approximately 7 weeks gestational age. No significant abnormality Electronically Signed: Kyler Moran MD at 17:55 EST Reading Location ID and State: [facility] / [place] , Service support , Discharge Plan Triage Chief Complaint: ED Provider: Enoch Serrano Dx/Rx/DC Orders Clinical Impression: Pelvic pain, First trimester Instructions: 1st Trimester, ED Pelvic Pain, Unknown Cause Prescriptions: No Action ondansetron 4 mg tablet,disintegrating 4 mg PO Q8H PRN (Reason: nausea and vomiting) Qty: 10 0RF Primary Care Provider: Agatha Mata NP Referrals: Adela Li MD [Med Staff - Active Staff] - As soon as possible Agatha Mata NP, WINDOW AIR CONDITIONER INSTALLER-C [Primary Care Provider] - Activity Restrictions/Additional Instructions: Call and follow-up with your DESIGN PROJECT MANAGER. Tylenol for pain. Ultrasound shows a 7-week with a due date in May. Disposition Disposition: Home, Self Care
[2022-10-21 16:21] LABS: Bacteria 0 SEEN /hpf (None Seen); Mucous, Urine 0 SEEN /hpf (<or=2+); Red Blood Cells-Urine 0 SEEN /hpf (0-5); White Blood Cells 0 SEEN /hpf (0-5)
[2022-10-21 16:26] LABS: Color, Urine Yellow (Yellow); Glucose, Dipstick Normal (Normal); Ketone-Dipstick 15 mg/dl (Negative); Leukocyte Esterase-Dipstick Negative /ul (Negative); Nitrite-Dipstick Negative (Negative); Occult Blood-Urine Negative /ul (Negative); Protein-Dipstick Negative (Negative); Specific Gravity, Urine 1.015 (1.002-1.030); Urine Bilirubin Dipstick Negative (Negative); Urine Clarity Clear (Clear); Urine Urobilinogen Normal (Normal)
[2022-10-21 16:42] LABS: Squamous Epithelial Cells - UA 0-5 SEEN /hpf (5-10)
[2022-10-21 17:46] VITALS: RESP 16
--- NOTE | 2022-10-21 18:41 | EDS_ITS ---
HPI HPI - Female History of Present Illness Chief Complaint: PFSH PFS Medical History Migraines Home Medications ondansetron 4 mg disintegrating tablet 4 mg PO Q8H PRN nausea and vomiting #10 tabs 04/10/22 [Rx Last Taken Unknown] ondansetron 4 mg disintegrating tablet 4 mg PO Q6H PRN nausea and vomiting #10 tabs 10/21/22 [Rx Last Taken Unknown] Allergy/AdvReac Type Severity Reaction Status Date / Time No Known Allergies Allergy Verified 10/21/22 15:43 Surgical History no surgical history Social History Smoking Status: Current every day smoker tobacco type: cigarettes and e- cigarettes EXAM Physical Exam Const Vital Signs: 10/21/22 15:43 10/21/22 17:46 Temperature 97.2 F L Temperature Source Temporal Pulse Rate 74 Respiratory Rate 14 16 Blood Pressure 125/82 H Blood Pressure Mean 96 Pulse Ox 100 Oxygen Delivery Method Room Air Room Air [facility] Lab Data Labs: Laboratory Results - last 24 hr 10/21/22 10/21/22 16:06 16:15 HCG, Quant 71371 H Urine Color Yellow Urine Clarity Clear Urine pH 8.0 Ur Specific [place] 1.015 Urine Protein Negative Urine Glucose (UA) Normal Urine Ketones 15 H Urine Occult Blood Negative Urine Nitrite Negative Urine Bilirubin Negative Urine Urobilinogen Normal Ur Leukocyte Esterase Negative Urine RBC 0 SEEN Urine WBC 0 SEEN Ur Squamous Epith Cells 0-5 SEEN Urine Bacteria 0 SEEN Urine Mucus 0 SEEN Radiography Diagnostic Testing: Clinical Impression(s) from Imaging Studies Obstetrics Ultrasound 10/21/22 16:00 IMPRESSION: Viable intrauterine gestation approximately 7 weeks gestational age. No significant abnormality Electronically Signed: Kyler Moran MD at 17:55 EST , Discharge Plan Triage Chief Complaint: ED Provider: Enoch Serrano Dx/Rx/DC Orders Clinical Impression: Pelvic pain, First trimester Instructions: 1st Trimester, ED Pelvic Pain, Unknown Cause Prescriptions: New ondansetron 4 mg tablet,disintegrating 4 mg PO Q6H PRN (Reason: nausea and vomiting) Qty: 10 0RF No Action ondansetron 4 mg tablet,disintegrating 4 mg PO Q8H PRN (Reason: nausea and vomiting) Qty: 10 0RF Primary Care Provider: Agatha Mata NP Referrals: Adela Li MD [Med Staff - Active Staff] - As soon as possible Agatha Mata NP, MANAGER [facility]EL[facility]PICE-[facility] [Primary Care Provider] - Activity Restrictions/Additional Instructions: Call and follow-up with your SOLAR PANEL INSTALLATION SUPERVISOR. Tylenol for pain. Ultrasound shows a 7-week with a due date in May. Disposition Disposition: Home, Self Care
[2022-10-21] MEDS: Ondansetron 4 MG/2 ML Vial IV (18:45)
== END 2022-10-21 18:57 | disposition home or self-care (01) ==
PROVIDERS: Emergency Provider Emergency Medicine; PCP Nurse Practitioner Primary Care; Visit Provider Emergency Medicine
DX: O26.891 Other specified pregnancy related conditions, first trimester (principal); R10.2 Pelvic and perineal pain; O99.331 Smoking (tobacco) complicating pregnancy, first trimester; F17.290 Nicotine dependence, other tobacco product, uncomplicated; Z3A.01 Less than 8 weeks gestation of pregnancy
CPT/HCPCS: 76817; 81001; 84702; 96374; 99284; J2405

== ENCOUNTER 2023-04-10 10:00 | Outpatient (CLI) | payer OTHER, MEDICAID, SELFPAY ==
[2023-04-10 10:25] VITALS: BP 115/72; PULSE 85
[2023-04-10 10:27] VITALS: TEMP 36.5
[2023-04-10 10:41] VITALS: BMI 26.1
[2023-04-10 11:13] LABS: ROM Internal Control Test YES-OK TO RESULT pt. (Internal QC); ROM Patient Test Negative (Negative); Record Kit Lot#, ROM+ K1374
--- NOTE | 2023-04-10 13:01 | OB.TRI.HP_ITS ---
HPI - General General Date of Service: 04/10/23 HPI Narrative MICHAEL CARDENAS, is a 22 F 2 31.2 weeks who presents c/o SROM and ctx. PFSH PFSH Medical History Migraines Home Medications ondansetron 4 mg disintegrating tablet 4 mg PO Q8H PRN nausea and vomiting #10 tabs 04/10/22 [Rx Last Taken 04/09/23] ondansetron 4 mg disintegrating tablet 4 mg PO Q6H PRN nausea and vomiting #10 tabs 10/21/22 [Rx Last Taken Unknown] Allergy/AdvReac Type Severity Reaction Status Date / Time No Known Allergies Allergy Verified 04/10/23 10:40 Social History Smoking Status: Current every day smoker tobacco type: cigarettes and e- cigarettes History Elective abortions Hx Para 0 Spontaneous abortions Hx # Term Pregnancies Ectopic pregnancies Hx # Pregnancies Multiple births # of living children Physical Exam Narrative VE per nursing: External os 1cm/thick/-3 NST FHR Rate Baby A Baseline: 140s Variability:: Moderate Accelerations:: 15 x 15 Decelerations:: None NST Reactive:: Yes FHR Category:: Category I Uterine Activity:: no ctx Assessment & Plan (1) 31 weeks gestation of : (2) Cramping affecting , antepartum: PLAN: Plan @ 31.2 weeks- membranes intact, not in labor Rom plus was negative nst was reassuring dc home
== END 2023-04-10 12:00 | disposition home or self-care (01) ==
LOC: WPOUT 10:12 → WP 10:12
PROVIDERS: PCP Nurse Practitioner Primary Care; Referring Provider Obstetrics & Gynecology; Visit Provider Obstetrics & Gynecology
DX: O99.891 Other specified diseases and conditions complicating pregnancy (principal); Z3A.31 31 weeks gestation of pregnancy; F17.210 Nicotine dependence, cigarettes, uncomplicated; F17.290 Nicotine dependence, other tobacco product, uncomplicated; R25.2 Cramp and spasm; O99.333 Smoking (tobacco) complicating pregnancy, third trimester
CPT/HCPCS: 59025; 59050; 84112; 99221; G0378

== ENCOUNTER 2023-06-06 18:19 | Inpatient (IN) | payer OTHER, MEDICAID, SELFPAY ==
[2023-06-06] VITALS (25 sets, daily range): BP systolic 114–158; BP diastolic 58–84; PULSE 64–95; TEMP 36.8–37.2; O2SAT 95–100; BMI 30.1
[2023-06-06] MEDS: Lactated Ringers 1,000 ML 50 ML IV (18:40)
[2023-06-06 18:55] LABS: Absolute Lymphocyte Count 1.27 X10^3/uL (0.83-4.51); Absolute Neutrophil Count 13.6 X10^3/uL (2.0-7.7); Basophil# 0.02 X10^3/uL; Basophil% 0.1 % (0-1); Eosinophil# 0.06 X10^3/uL; Eosinophils% 0.4 % (0-5); Hematocrit 34.6 % (37-47); Lymphocyte # 1.27 X10^3/ul (0.83-4.51); Lymphocyte % 7.9 % (19-41); Mean Corp Hgb Conc 31.8 g/dL (32-36); Mean Corpuscular Hgb 26.6 pg (27.0-32.0); Mean Corpuscular Volume 83.6 fL (81-99); Mean Platelet Vol. 10.8 fl (6.2-12.0); Monocyte# 1.01 X10^3/uL; Monocyte% 6.3 % (0-10); NRBC Flagged by Analyzer 0 % (0-5); Neutrophil # 13.55 X10^3/uL (2.7-7.7); Neutrophil % 84.6 % (47-70); Platelet Count 261 K/mm3 (150-450); RBC Distribution Width CV 13.1 % (11.6-14.6); RBC Distribution Width SD 39.5 fl (35.1-43.9); Red Blood Count 4.14 M/mm3 (4.2-5.4)
[2023-06-06] MEDS: Penicillin G Pot 5,000,000 UNITS in 0.9% Normal Saline (100mL MB+) 100 ML 150 UNITS IV (19:50)
[2023-06-06 20:00] LABS: Syphilis Antibodies Non-reactive
[2023-06-06] MEDS: Ondansetron 4 MG/2 ML Vial IV (21:47)
[2023-06-06] MEDS: Oxytocin 10 UNITS/ML Vial IM (22:33)
[2023-06-06] MEDS: Oxytocin 15 Units/NS 250ml 15 UNITS/250 ML IV.SOLN 83 UNITS IV (22:34)
--- NOTE | 2023-06-06 22:42 | HP.PCM.OB_ITS ---
HPI - General General Date of Admission: 06/06/23 HPI Narrative MICHAEL CARDENAS, is a 22 F who presents with ctxs. Maternal Data Information Final FABI: 06/10/23 Gestational age: 39&3 PFSH PFSH Medical History (Updated 06/06/23 @ 22:[address] Rukhsana Barnett MD) Anemia History of PCOS History of syncope Migraines Home Medications aspirin 81 mg tablet,delayed release (Adult Aspirin Regimen) 81 mg PO DAILY 06/06/23 [History Last Taken 05/23/23] vits no.130-ferrous fum 27 mg iron-folic acid 800 mcg tablet ( Vitamin) tab PO DAILY 06/06/23 [History Last Taken Unknown] Allergy/AdvReac Type Severity Reaction Status Date / Time No Known Allergies Allergy Verified 06/06/23 18:20 Surgical History no surgical history Social History Smoking Status: Current some day smoker tobacco type: cigarettes and e- cigarettes History Elective abortions Hx Para 1 Spontaneous abortions Hx # Term Pregnancies Ectopic pregnancies Hx # Pregnancies Multiple births # of living children Vital Signs Vital Signs Vital Signs: 06/06/23 17:55 06/06/23 17:55 06/06/23 17:55 Temperature Temperature Source Temporal Pulse Rate 88 Blood Pressure 127/84 H BP Systolic 127 BP Diastolic 84 Pulse Ox 06/06/23 17:55 06/06/23 17:55 06/06/23 19:43 Temperature 98.9 F Temperature Source Pulse Rate 78 Blood Pressure BP Systolic BP Diastolic Pulse Ox 98 06/06/23 19:43 06/06/23 19:46 06/06/23 19:46 Temperature Temperature Source Pulse Rate 82 Blood Pressure 116/73 BP Systolic 116 BP Diastolic 73 Pulse Ox 97 06/06/23 19:53 06/06/23 19:53 06/06/23 20:46 Temperature 98.3 F Temperature Source Oral Pulse Rate 76 Blood Pressure BP Systolic BP Diastolic Pulse Ox 06/06/23 20:46 06/06/23 21:19 06/06/23 21:19 Temperature Temperature Source Pulse Rate 64 Blood Pressure 121/74 H BP Systolic 121 BP Diastolic 74 Pulse Ox 100 06/06/23 21:19 06/06/23 21:19 06/06/23 21:19 Temperature 98.9 F Temperature Source Oral Pulse Rate Blood Pressure BP Systolic BP Diastolic Pulse Ox 100 06/06/23 21:55 06/06/23 21:55 06/06/23 22:20 Temperature Temperature Source Pulse Rate 65 Blood Pressure 114/67 BP Systolic 114 BP Diastolic 67 Pulse Ox 97 06/06/23 22:20 06/06/23 22:22 06/06/23 22:22 Temperature Temperature Source Pulse Rate 80 78 Blood Pressure BP Systolic BP Diastolic Pulse Ox 99 06/06/23 22:27 06/06/23 22:27 Temperature Temperature Source Pulse Rate 95 Blood Pressure BP Systolic BP Diastolic Pulse Ox 99 Weight Weight: 181 lb 4 oz Body Mass Index (BMI) 30.1 Labs Labs Labs: Blood Type O POSITIVE Antibody Screen NEGATIVE Hct 34.6 % (37-47) L Hgb 11.0 g/dL (12.0-15.0) L Obstetrics Ultrasound Syphilis Total Ab Non-reactive VZV IgG Antibody 279 index (Immune >165) Rubella IgG Antibody 9.1 IU/mL Hep Bs Antigen Negative (Negative) Chlamydia DNA (JAKE) Positive (Negative) H N.gonorrhoeae DNA (JAKE) Negative (Negative) Glucose 1 Hr 50 gm 114 mg/dL (70-140) Group B Strep DNA Negative (Negative) Rhogam given: No Assessment & Plan (1) 39 weeks gestation of : COMMENT: @ 39&3 PLAN: Plan Patient admitted to L&D GBS positive - pcn given Patient progressed & is now s/p
[2023-06-06] MEDS: Methylergonovine 0.2 MG/ML Ampul IM (22:46)
--- NOTE | 2023-06-06 22:48 | EX.PCM.OBRPT ---
Maternal Data Information Final FABI: 06/10/23 Gestational age: 39&3 Vaginal Delivery Maternal Presentation Maternal Presentation: Active Labor Operative Information Date of Procedure: 06/06/23 Pre-Operative Diagnosis: Labor Post-Operative Diagnosis: Labor Surgery / Procedure Performed: Spontaneous Vaginal Delivery Type of Anesthesia: None Estimated Blood Loss: 200ml Findings Description of Procedure: Patient draped when C/C/+2. She pushed well to deliver the head. head gently guided to allow delivery of anterior and posterior shoulders. No excess traction placed on head. Body delivered and 3VC clamped & cut in delayed fashion. Placenta delivered with gentle traction and good uterine tone obtained. Presentation: DM Amniotic Membrane Rupture Type: Spontaneous Amniotic Fluid Description: Moderate meconium Placental Delivery Description: Spontaneous Placenta Disposition: [facility] Specimen(s) Removed: Placenta Cord Vessel Description: 3 Vessels Cord Entanglement: None A Gender: Female (1 minute): 7 (5 minute): 8 Delayed Cord Clamping: Yes Post Vaginal Delivery Medications Given After Delivery: IV Pitocin and IM Pitocin Episiotomy Description: None Laceration: None Complication Complications: None
[2023-06-06] MEDS: miSOPROStol 200 MCG Tablet 1000 MCG RC (23:20)
[2023-06-06] MEDS: Acetaminophen 500 MG Tablet 1000 MG PO (23:20)
[2023-06-07] VITALS (14 sets, daily range): BP systolic 111–151; BP diastolic 57–71; PULSE 64–86; RESP 15–16; TEMP 36.3–37.6; O2SAT 97–99
[2023-06-07] MEDS: Ibuprofen 600 MG Tablet PO ×2 (00:28→20:31)
[2023-06-07] MEDS: 0.9% Saline Lock 10 ML Syringe IV (01:37)
--- NOTE | 2023-06-07 07:30 | NURSING ---
bedside report given to Dorie Richardson RN who is assuming care of pt at this time
--- NOTE | 2023-06-07 12:18 | PN.OBGYN_ITS ---
Subjective Subjective pain well controlled, average lochia, no C/o Objective Data Objective Data Vital Signs: Vital Signs Temp Pulse Resp BP Pulse Ox O2 Del Method 97.6 F L 78 16 119/66 98 Room Air 06/07/23 08:16 06/07/23 08:16 06/07/23 08:16 06/07/23 08:16 06/07/23 08:16 06/07/23 08:16 Oxygen Delivery Method Room Air Weight: 82.214 kg Body Mass Index (BMI) 30.1 Intake & Output: Intake and Output for Last 24 Hours 06/05/23 06/06/23 06/07/23 23:59 23:59 23:59 Intake Total 429.16 / 429.16 250 / 250 Output Total 200 / 200 800 / 800 Balance 229.16 / 229.16 -550 / -550 Lab / Micro Data 06/06/23 18:40 Labs: Laboratory Results - last 24 hr 06/06/23 18:40: WBC 16.0 H, RBC 4.14 L, Hgb 11.0 L, Hct 34.6 L, MCV 83.6, MCH 26.6 L, MCHC 31.8 L, RDW Std Deviation 39.5, RDW Coeff of [place] 13.1, Plt Count 261, MPV 10.8, Immature Gran % (Auto) 0.700, Neut % (Auto) 84.6 H, Lymph % (Auto) 7.9 L, [place] % (Auto) 6.3, Eos % (Auto) 0.4, Baso % (Auto) 0.1, Absolute Neuts (auto) 13.6 H, Absolute Lymphs (auto) 1.27, Nucleated RBC % 0, Syphilis Total Ab Non-reactive, Blood Type O POSITIVE, Antibody Screen NEGATIVE Physical Exam Narrative awake, alert, NAD Assessment & Plan (1) (spontaneous vaginal delivery): PLAN: Plan PPD#1 routine care nenonate and doing well likely home tomorrow
[2023-06-08 01:57] VITALS: BP 111/73; PULSE 82; RESP 16; TEMP 36.6
[2023-06-08 08:34] VITALS: BP 109/70; PULSE 68; RESP 16; TEMP 36.2; O2SAT 98
[2023-06-08 08:39] VITALS: BP 109/70; PULSE 68
--- NOTE | 2023-06-08 08:53 | DS.PCM_ITS ---
Providers Date of Admission: 06/06/23 Primary Care Physician: Agatha Mata NP Reason For Visit: VAG Diagnosis Discharge Diagnosis (1) (spontaneous vaginal delivery): Status: Acute Code(s): O80 - Encounter for full-term uncomplicated delivery (2) Care and examination of lactating mother: Status: Acute Code(s): Z39.1 - Encounter for care and examination of lactating mother Medications at Discharge Home Medications vits no.130-ferrous fum 27 mg iron-folic acid 800 mcg tablet ( Vitamin) tab PO DAILY 06/06/23 Hospital Course Operations None Summary of Care Provided Minutes Spent on Discharge: 20 Hospital Course: Patient had . Hospital course was uneventful Physical Exam Const alert and no apparent distress General Appearance: cooperative and comfortable Exam Limitations: no limitations HEENT normocephalic Eyes General Eye: normal appearance of both eyes Neck full ROM General: normal visual inspection Chest Chest: symmetrical chest wall rise Resp normal respiratory effort and normal air movement Effort and Inspection: symmetric chest movement Auscultation: clear to auscultation bilaterally Cardio regular rate and regular rhythm GI normal to inspection, nondistended, normoactive bowel sounds Back/Spine normal ROM Extremity full ROM and no calf tenderness General Extremity: normal exam except as noted Skin no rashes or lesions noted Neuro CN's II-XII intact bilaterally Psych mental status grossly normal Weight / BMI Weight Weight: 181 lb 4 oz Body Mass Index (BMI) 30.1 ABG / Lab / Microbiology Data 06/06/23 18:40 D/C Instructions Discharge Diet: No restrictions May resume sexual activity in: 6-8 weeks Weight Bearing Status: Weight bearing as tolerated Call your doctor if you observe: Fever of 101 or Higher, Inability to urinate, Using more than 1 pad per hour, Shortness of breath, Chest pain, Calf discomfort and Uncontrolled pain When: 2 weeks virtual visit/ 6 weeks in office Meaningful Use Info Meaningful Use Diagnoses (Choose all that apply): None applicable Discharge Plan Admission Admit Date/Time: 06/06/23 18:19 Primary Reason for Your Visit: Labor and Delivery Attending Provider: Rukhsana Barnett Primary Care Provider: Agatha Mata NP Discharge Orders/Prescriptions Prescriptions: Continued Vitamin 27 mg iron- 800 mcg tablet PO DAILY Discontinued aspirin [Adult Aspirin Regimen] 81 mg tablet,delayed release (DR/EC) 81 mg PO DAILY Referrals / Follow Up: Agatha Mata MEN'S GARMENT FITTER, MEN'S GARMENT FITTER-C [Primary Care Provider] - Disposition Disposition (needs filled in before D/C Order can be placed): Home, Self Care
== END 2023-06-08 11:05 | disposition home or self-care (01) | DRG 807 ==
LOC: WPOUT 18:22 → WP 18:22
PROVIDERS: Admitting Provider Obstetrics & Gynecology; PCP Nurse Practitioner Primary Care; Visit Provider Obstetrics & Gynecology
DX: O99.824 Streptococcus B carrier state complicating childbirth (principal); Z37.0 Single live birth; F17.210 Nicotine dependence, cigarettes, uncomplicated; O99.334 Smoking (tobacco) complicating childbirth; O77.0 Labor and delivery complicated by meconium in amniotic fluid; Z3A.39 39 weeks gestation of pregnancy; Z79.82 Long term (current) use of aspirin
CPT/HCPCS: 59025; 59050; 85025; 86780; 86850; 86900; 86901; 94799; 99221; J7120; A4216; G0378; J2405